=== PATIENT | male | born 1995 | race Caucasian/White ===

== ENCOUNTER → 2016-09-03 | Outpatient (CLI) | payer BC ==
--- NOTE | 2016-09-03 21:46 | DIAGNOSTIC IMAGING REPORT ---
MRI OF THE THORACIC SPINE WITHOUT CONTRAST CLINICAL HISTORY: Persistent back pain with radiculopathy. Previous injury. COMPARISON: None. TECHNIQUE: Utilizing a 1.5 Randa magnet and dedicated coil, multiplanar, multiecho imaging of the thoracic spine was performed without IV contrast. FINDINGS: Alignment of the thoracic spine is anatomic. Vertebral body heights are maintained. No marrow replacement is present. There is no intracanalicular mass or fluid collection. Thoracic cord signal and caliber are normal. The central canal and neural foramen are patent. IMPRESSION: Unremarkable MRI of the thoracic spine. Normal thoracic cord signal and caliber. Patent central canal and neural foramen. Electronically signed by: Jose Leos M.D. 09/03/2016 9:44 PM Dictated Date/Time: 09/03/2016 9:41 PM
--- NOTE | 2016-09-03 21:52 | DIAGNOSTIC IMAGING REPORT ---
MRI OF THE LUMBAR SPINE WITHOUT CONTRAST CLINICAL HISTORY: LUMBAR RADICULOPATHY COMPARISON STUDY: No previous studies for comparison. TECHNIQUE: Utilizing a 1.5 Randa magnet and dedicated coil, multiplanar, multiecho imaging of the lumbar spine was performed without IV contrast. FINDINGS: For purposes of numbering on this exam, the L5-S1 disc space is assigned to axial image 27 of 30. Vertebral body heights are maintained. Conus terminates at the upper L1 level. There is no intracanalicular mass or fluid collection. Paravertebral soft tissues are unremarkable. L1-2: The central canal and neural foramen are patent. L2-3: The central canal and neural foramen are patent. L3-4: There is minimal disc bulge. The central canal and neural foramen are patent. L4-5: There is minimal disc bulge. The central canal and neural foramen are patent. L5-S1: There is mild disc space narrowing. There is a disc bulge with a superimposed moderate-sized right paracentral disc protrusion. This results in moderate narrowing of the right lateral recess. There is mild narrowing of the right neural foramen. The left neural foramen is patent. IMPRESSION: 1. Disc bulge with right paracentral disc protrusion at L5-S1 that results in moderate narrowing of the right lateral recess with suspected mass effect upon the descending right S1 nerve root. 2. Minimal disc bulges at L3-L4 and L4-L5. Electronically signed by: Jose Leos M.D. 09/03/2016 9:51 PM Dictated Date/Time: 09/03/2016 9:48 PM
== END | disposition home or self-care (01) ==
LOC: C.MRI 19:59
PROVIDERS: ATTEND Internal Medicine
DX: M54.16 Radiculopathy, lumbar region (principal); M51.06 Intervertebral disc disorders with myelopathy, lumbar region